=== PATIENT | male | born 1985 | race Caucasian/White ===

== ENCOUNTER 2017-04-24 02:12 | Inpatient (IN) | payer OTHER ==
[2017-04-24] VITALS (17 sets, daily range): BP systolic 111–142; BP diastolic 64–81; PULSE 89–98; RESP 18–23; TEMP 97.9–99; O2SAT 93–100
[~2017-04-24] VITALS: Ht 172.7 cm; Wt 85.4 kg
[~2017-04-24 02:12] MED LIST: Z.0.NO CURRENT MEDS; ZITH250T PO
[2017-04-24] MEDS ORDERED: ceFAZolin 2 GM PREMIX 50 ML ONE (02:17)
[2017-04-24] MEDS ORDERED: PROPOFOL 1000 MG/100 ML INJ 100 ML ONE ×3 (02:18→07:22)
[2017-04-24 02:32] LABS: I-STAT POTASSIUM 3.7 MMOL/L (3.5-4.9)
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
[2017-04-24 02:33] LABS: AUTOMATED NEUTROPHIL # 14.4 TH/MM3 (1.8-7.7); BASOPHIL # 0.1 TH/MM3 (0-0.2); BASOPHIL % 0.7 % (0.0-2.0); EOSINOPHIL # 0.1 TH/MM3 (0-0.4); EOSINOPHIL % 0.5 % (0.0-4.0); HEMATOCRIT 44.8 % (39.0-51.0); HEMO FLAGS DIFF FINAL; LYMPH % 23.8 % (9.0-44.0); LYMPHOCYTE # 4.9 TH/MM3 (1.0-4.8); MEAN CELL VOLUME 87.3 FL (80.0-100.0); MEAN CORPUSCULAR HEMOGLOBIN 29.7 PG (27.0-34.0); MONO % 4.3 % (0.0-8.0); NEUT % 70.7 % (16.0-70.0); PLATELET COUNT 170 TH/MM3 (150-450); RED BLOOD COUNT 5.14 MIL/MM3 (4.50-5.90); RED CELL DISTRIBUTION WIDTH 12.9 % (11.6-17.2); WHITE BLOOD COUNT 20.4 TH/MM3 (4.0-11.0)
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
[2017-04-24 02:46] LABS: APTT (PATIENT) 24.3 SEC (24.3-30.1); PROTHROMBIN TIME - PATIENT 10.7 SEC (9.8-11.6)
[2017-04-24] MEDS ORDERED: IOHEXOL 350 MG/ML 10 ML VIAL (for RAD DIAG) IV ONE (02:56)
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
[2017-04-24] MEDS ORDERED: MANNITOL INJ 50 ML ONE (03:25)
[2017-04-24] MEDS ORDERED: metroNIDAZOLE 500 MG INJ 100 ML IV ONE (04:34)
[2017-04-24] MEDS ORDERED: MIDAZOLAM HCL 2 MG/2 ML VIAL ONE (05:12)
[2017-04-24] MEDS ORDERED: fentaNYL CITRATE 250 MCG/5 ML AMP ONE ×2 (05:13→05:14)
[2017-04-24] MEDS ORDERED: LORazepam 2 MG TAB PO PRN (05:30)
[2017-04-24] MEDS ORDERED: LORazepam 1 MG TAB PO PRN (05:30)
[2017-04-24] MEDS ORDERED: CHLORHEXIDINE GLUCONATE 2 % 1 PACK (2 CLOTHS) TOP PRN (05:30)
[2017-04-24] MEDS ORDERED: LORazepam 2 MG/ML VIAL IV PUSH PRN ×4 (05:30)
[2017-04-24] MEDS ORDERED: MISCELLANEOUS NURSING INFORMATION XX SCH (05:30)
[2017-04-24] MEDS ORDERED: FLUMAZENIL 0.5 MG/5 ML VIAL IV PUSH PRN (05:30)
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
[2017-04-24 06:37] LABS: BLOOD GAS CARBOXYHEMOGLOBIN 1.9 % (0-4); BLOOD GAS HCO3 20 mmol/L (22-26); BLOOD GAS METHEMOGLOBIN 1.1 % (0-2); BLOOD GAS O2 HGB SATURATION 93 % (90-100); BLOOD GAS OXYGEN CONTENT 19.8 Vol % (12.0-20.0); BLOOD GAS PCO2 45 mmHg (38-42); BLOOD GAS PO2 101 mmHg (61-120); CRITICAL VALUE YES; TEMP CORR TO 98.6
[2017-04-24 06:38] LABS: DRAW SITE RT RADIAL; FIO2 100 %; NUMBER OF ARTERIAL PUNCTURES 1; OXYGEN DEVICE VENTILATOR; STAT NO; ULNAR PULSE PRESENT
[2017-04-24] MEDS ORDERED: fentaNYL 2,500 MCG/NS 250 ML IV SCH (06:45)
[2017-04-24] MEDS: PANTOPRAZOLE SODIUM 40 MG VIAL IVP SCH (06:54)
[2017-04-24] MEDS: SODIUM CHLOR 0.9% 1000 ML INJ 1,000 ML IV SCH ×2 (06:54→11:13)
[2017-04-24] MEDS ORDERED: MULTIVITAMIN INJ 10 ML, THIAMINE INJ 100 MG, FOLIC ACID INJ 1 MG in SODIUM CHLORID 0.9%... IV SCH ×2 (07:30→16:00)
[2017-04-24] MEDS: DOCUSATE SODIUM 100 MG CAP PO SCH ×2 (08:18→19:50)
[2017-04-24] MEDS ORDERED: PROPOFOL 1000 MG/100 ML IV SCH (08:30)
[2017-04-24] MEDS: ONDANSETRON HCL 4 MG/2 ML VIAL IV PRN ×2 (10:07→22:21)
[2017-04-24] MEDS: MULTIVITAMIN INJ 10 ML, THIAMINE INJ 100 MG, FOLIC ACID INJ 1 MG in SODIUM CHLORID 0.9%... IV SCH (10:42)
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
[2017-04-24] MEDS ORDERED: MORPHINE SULFATE 4 MG/ML INJ IV PUSH PRN (11:00)
[2017-04-24] MEDS ORDERED: LACTATED RINGER'S 1000 ML INJ 1,000 ML IV ONE (12:00)
[2017-04-24] MEDS: HYDROmorphone HCL PF 1 MG/ML VIAL IV PUSH PRN ×6 (12:38→23:11)
[2017-04-24] MEDS: HALOPERIDOL LACTATE 5 MG/ML AMP IV PUSH PRN ×2 (14:17→19:55)
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
[2017-04-24] MEDS: oxyCODONE/ACETAMINOPHEN 5 MG/325 MG TAB PO PRN (22:21)
[2017-04-25] VITALS (12 sets, daily range): BP systolic 130–143; BP diastolic 64–90; PULSE 80–99; RESP 17–26; TEMP 97–98.9; O2SAT 94–97
[2017-04-25] MEDS: HALOPERIDOL LACTATE 5 MG/ML AMP IV PUSH PRN ×2 (00:42→05:18)
[2017-04-25] MEDS: HYDROmorphone HCL PF 1 MG/ML VIAL IV PUSH PRN ×10 (01:13→20:41)
[2017-04-25] MEDS: CHLORHEXIDINE GLUCONATE 2 % 1 PACK (2 CLOTHS) TOP SCH (04:00)
[2017-04-25 04:41] LABS: AUTOMATED NEUTROPHIL # 12.5 TH/MM3 (1.8-7.7); BASOPHIL % 0.1 % (0.0-2.0); EOSINOPHIL % 0.1 % (0.0-4.0); HEMATOCRIT 44.5 % (39.0-51.0); HEMO FLAGS DIFF FINAL; LYMPH % 8.9 % (9.0-44.0); LYMPHOCYTE # 1.3 TH/MM3 (1.0-4.8); MEAN CELL VOLUME 88.2 FL (80.0-100.0); MONO % 6.8 % (0.0-8.0); NEUT % 84.1 % (16.0-70.0); PLATELET COUNT 128 TH/MM3 (150-450); RED BLOOD COUNT 5.05 MIL/MM3 (4.50-5.90); RED CELL DISTRIBUTION WIDTH 13.2 % (11.6-17.2); WHITE BLOOD COUNT 14.9 TH/MM3 (4.0-11.0)
[2017-04-25 04:54] LABS: BICARBONATE 29.6 MEQ/L (21.0-32.0); POTASSIUM 4.1 MEQ/L (3.5-5.1)
[2017-04-25] MEDS: PANTOPRAZOLE SODIUM 40 MG VIAL IVP SCH (05:18)
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
[2017-04-25] MEDS: DOCUSATE SODIUM 100 MG CAP PO SCH ×2 (07:40→20:10)
[2017-04-25] MEDS ORDERED: LACTULOSE SYRUP 20 GM/30 ML CUP PO SCH (09:00)
[2017-04-25] MEDS: MULTIVITAMIN INJ 10 ML, THIAMINE INJ 100 MG, FOLIC ACID INJ 1 MG in SODIUM CHLORID 0.9%... IV SCH (10:00)
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
[2017-04-25] MEDS: oxyCODONE/ACETAMINOPHEN 5 MG/325 MG TAB PO PRN ×2 (16:15→20:10)
[2017-04-25] MEDS: SODIUM CHLOR 0.9% 1000 ML INJ 1,000 ML IV SCH (18:46)
[2017-04-26] VITALS (10 sets, daily range): BP systolic 109–157; BP diastolic 59–102; PULSE 75–100; RESP 16–19; TEMP 97.5–99.4; O2SAT 94–98
[2017-04-26] MEDS: oxyCODONE/ACETAMINOPHEN 5 MG/325 MG TAB PO PRN ×6 (00:25→23:12)
[2017-04-26] MEDS: HYDROmorphone HCL PF 1 MG/ML VIAL IV PUSH PRN ×6 (00:56→20:57)
[2017-04-26] MEDS: CHLORHEXIDINE GLUCONATE 2 % 1 PACK (2 CLOTHS) TOP SCH (01:29)
[2017-04-26] MEDS: PANTOPRAZOLE SODIUM 40 MG VIAL IVP SCH (04:14)
[2017-04-26] MEDS: ENALAPRILAT 1.25 MG/ML VIAL IV PRN ×2 (05:07→19:43)
[2017-04-26] MEDS: DOCUSATE SODIUM 100 MG CAP PO SCH ×2 (08:11→19:43)
[2017-04-26] MEDS: MULTIVITAMIN INJ 10 ML, THIAMINE INJ 100 MG, FOLIC ACID INJ 1 MG in SODIUM CHLORID 0.9%... IV SCH (08:12)
[2017-04-26] MEDS: SODIUM CHLOR 0.9% 1000 ML INJ 1,000 ML IV SCH (08:22)
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
[2017-04-26 09:49] LABS: AUTOMATED NEUTROPHIL # 8.4 TH/MM3 (1.8-7.7); BASOPHIL % 0.2 % (0.0-2.0); EOSINOPHIL # 0.1 TH/MM3 (0-0.4); EOSINOPHIL % 0.9 % (0.0-4.0); HEMO FLAGS DIFF FINAL; LYMPH % 15.2 % (9.0-44.0); LYMPHOCYTE # 1.7 TH/MM3 (1.0-4.8); MEAN CELL VOLUME 87.5 FL (80.0-100.0); MEAN CORPUSCULAR HGB CONC 33.2 % (32.0-36.0); NEUT % 75.7 % (16.0-70.0); PLATELET COUNT 132 TH/MM3 (150-450); RED BLOOD COUNT 5.14 MIL/MM3 (4.50-5.90); RED CELL DISTRIBUTION WIDTH 12.6 % (11.6-17.2); WHITE BLOOD COUNT 11.1 TH/MM3 (4.0-11.0)
[2017-04-26 10:20] LABS: ALKALINE PHOSPHATASE 101 U/L (45-117); ALT (GPT) 38 U/L (12-78); ANION GAP 9 MEQ/L (5-15); AST (GOT) 37 U/L (15-37); BICARBONATE 28.1 MEQ/L (21.0-32.0); BLOOD UREA NITROGEN 9 MG/DL (7-18); CHLORIDE 99 MEQ/L (98-107); GLOMERULAR FILTRATION RATE 109 ML/MIN (>89); POTASSIUM 3.7 MEQ/L (3.5-5.1); SODIUM (NA) 136 MEQ/L (136-145); TOTAL BILIRUBIN ADULT 0.9 MG/DL (0.2-1.0)
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
[2017-04-26] MEDS: SODIUM CHLORIDE 0.9% FLUSH 10 ML FLUSH IV FLUSH PRN (19:43)
[2017-04-27] MEDS: CHLORHEXIDINE GLUCONATE 2 % 1 PACK (2 CLOTHS) TOP SCH (00:01)
[2017-04-27 00:02] VITALS: BP 140/88; PULSE 80; RESP 18; TEMP 98.4; O2SAT 96
[2017-04-27] MEDS: SODIUM CHLOR 0.9% 1000 ML INJ 1,000 ML IV SCH (00:02)
[2017-04-27] MEDS: HYDROmorphone HCL PF 1 MG/ML VIAL IV PUSH PRN ×3 (01:15→08:44)
[2017-04-27] MEDS: oxyCODONE/ACETAMINOPHEN 5 MG/325 MG TAB PO PRN ×3 (03:19→11:44)
[2017-04-27 04:15] VITALS: BP 146/89; PULSE 72; RESP 18; TEMP 97.2; O2SAT 96
[2017-04-27] MEDS: PANTOPRAZOLE SODIUM 40 MG VIAL IVP SCH (05:19)
[2017-04-27] MEDS: SODIUM CHLORIDE 0.9% FLUSH 10 ML FLUSH IV FLUSH PRN (05:20)
[2017-04-27 07:29] VITALS: O2SAT 96
[2017-04-27 08:00] VITALS: BP 156/107; PULSE 70; RESP 20; TEMP 98; O2SAT 95
[2017-04-27] MEDS: DOCUSATE SODIUM 100 MG CAP PO SCH (08:44)
[2017-04-27] MEDS ORDERED: OXYC1TAB63 PO (10:50)
[2017-04-27] MEDS ORDERED: DOCU1CAP39 PO (11:13)
[2017-04-27] MEDS ORDERED: LACTULOSE SYRUP 20 GM/30 ML CUP PO ONE (11:15)
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
[2017-04-27 11:48] VITALS: BP 144/81; PULSE 119; RESP 20; TEMP 97.9; O2SAT 95
== END 2017-04-27 13:25 | disposition home or self-care (01) | DRG 326 ==
LOC: NEPI 02:12 → MERGE 02:29 → NEDA 02:29 → EDBD 02:29 → N03A 05:04 → N06A 04-25 11:05
PROVIDERS: ADMIT Surgery; ATTEND Surgery
PROC: 0DQK0ZZ Repair Ascending Colon, Open Approach (ICD-10-PCS; 2017-04-24)
PROC: 0FQ20ZZ Repair Left Lobe Liver, Open Approach (ICD-10-PCS; 2017-04-24)
PROC: 0DQW0ZZ Repair Peritoneum, Open Approach (ICD-10-PCS; 2017-04-24)
PROC: 0DQV0ZZ Repair Mesentery, Open Approach (ICD-10-PCS; 2017-04-24)
PROC: 0BH18EZ Insertion of Endotracheal Airway into Trachea, Via Natural or Artificial Opening Endoscopic (ICD-10-PCS; 2017-04-24)
PROC: 5A1935Z Respiratory Ventilation, Less than 24 Consecutive Hours (ICD-10-PCS; 2017-04-24)
PROC: 0DQ60ZZ Repair Stomach, Open Approach (ICD-10-PCS; principal; 2017-04-24 02:45)
DX: S36.39XA Other injury of stomach, initial encounter (principal); J96.00 Acute respiratory failure, unspecified whether with hypoxia or hypercapnia; S36.113A Laceration of liver, unspecified degree, initial encounter; S21.139A Puncture wound without foreign body of unspecified front wall of thorax without penetration into thoracic cavity, initial encounter; S22.32XA Fracture of one rib, left side, initial encounter for closed fracture; S36.529A Contusion of unspecified part of colon, initial encounter; F10.129 Alcohol abuse with intoxication, unspecified; X93.XXXA Assault by handgun discharge, initial encounter; Y93.01 Activity, walking, marching and hiking; Y92.832 Beach as the place of occurrence of the external cause; Y99.8 Other external cause status; Y90.7 Blood alcohol level of 200-239 mg/100 ml; R41.82 Altered mental status, unspecified
CPT/HCPCS: 31500; 36600; 71010; 71275; 72170; 74174; 80048; 80053; 80307; 82435; 82565; 82805; 82947; 84132; 84295; 84520; 85025; 85610; 85730; 86850; 86900; 86901; 86920; 87641; 90471; 92950; 94002; 94150; 94640; 94667; 94668; 96374; 99291; C1765; C9113; G0390; J0690; J1170; J1630; J2150; J2250; J2270; J2405; J3010; J3411; J7030; J7040; J7120; Q9967

== ENCOUNTER 2017-05-11 11:47 | Emergency (ER) | payer SELFPAY ==
[~2017-05-11] VITALS: Ht 172.7 cm; Wt 86.2 kg
[~2017-05-11 11:47] MED LIST changes: +DOCU1CAP39 PO; +OXYC1TAB63 PO
[2017-05-11 11:48] VITALS: BP 139/89; PULSE 91; RESP 16; TEMP 98.9; O2SAT 99
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
== END 2017-05-11 12:37 | disposition home or self-care (01) ==
LOC: NEPK 11:47
DX: S21.132D Puncture wound without foreign body of left front wall of thorax without penetration into thoracic cavity, subsequent encounter (principal); W34.00XD Accidental discharge from unspecified firearms or gun, subsequent encounter; Z48.02 Encounter for removal of sutures
CPT/HCPCS: 99281